=== PATIENT | female | born 1970 | race Hispanic/Latino ===

== ENCOUNTER → 2024-07-03 08:57 | Outpatient (REF) | payer BC, SELFPAY ==
[2024-07-03 10:05] LABS: % Basophils 1.1 % (0-2); % Eosinophils 3.4 % (0-6); % Immature Granulocytes 0.6 % (0-0.5); % Lymphocytes 34.4 % (20.5-51.1); % Monocytes 4.1 % (1.7-9.3); % Neutrophils 56.1 % (42.2-75.2); Absolute Basophils 0.1 10^3/uL (0-0.2); Absolute Eosinophils 0.4 10^3/uL (0-0.7); Absolute Immature Granulocytes 0.1 10^3/uL (0-0.05); Absolute Lymphocytes 3.4 10^3/uL (1.2-3.4); Absolute Monocytes 0.4 10^3/uL (0.1-0.6); Absolute Neutrophils 5.4 10^3/uL (1.4-6.5); Hematocrit 29.5 % (37.0-47.0); Hemoglobin 8.7 g/dL (12.0-16.0); Mean Corp Hgb Conc. 29.3 g/dL (33.0-37.0); Mean Corpuscular Hgb 19.1 pg (27.0-31.0); Mean Corpuscular Volume 65.2 fL (81.0-99.0); Mean Platelet Volume 10.3 fL (7.4-10.4); Nucleated Red Blood Cells % 0 %; Platelet Count 439 10^3/uL (130-400); Red Blood Cell Count 4.66 10^6/uL (4.20-5.40); Red Cell Dist. Width 21.3 % (11.5-14.5); White Blood Cell Count 9.7 10^3/uL (4.8-10.8)
[2024-07-03 10:12] LABS: AST (SGOT) 25 U/L (14-36); Albumin 4.2 g/dl (3.5-5.0); Alkaline Phosphatase 85 U/L (38-126); Blood Urea Nitrogen 11 mg/dl (7-17); Calcium 9.6 mg/dl (8.4-10.2); Carbon Dioxide 27 mmol/L (22-30); Chloride 100 mmol/L (98-107); Glucose 124 mg/dl (70-99); HDL Cholesterol 37 mg/dl; LDL Cholesterol, Calculated 110 mg/dl; Potassium 4.1 mmol/L (3.5-5.1); Sodium 137 mmol/L (135-145); Total Bilirubin 0.4 mg/dl (0.2-1.3); Total Cholesterol 193 mg/dl (50-199); Total Protein 6.8 g/dl (6.3-8.2); Triglyceride 231 mg/dl (10-149); Very Low Density Lipoprotein 46 mg/dl (0-30); eGFR > 60.00
[2024-07-03 10:39] LABS: ALT (SGPT) 16 U/L (0-35)
[2024-07-03 12:26] LABS: Glycohemoglobin (HgbA1c) 7.6 % (4.0-5.6)
== END ==
LOC: REG 08:57
PROVIDERS: ATTENDING PHYSICIAN Family Medicine
DX: E11.9 Type 2 diabetes mellitus without complications (principal)
CPT/HCPCS: 36415; 80053; 80061; 83036; 85025

== ENCOUNTER → 2024-07-30 16:16 | Outpatient (REF) | payer BC, SELFPAY | LOC: CLAB 16:16 | PROVIDERS: ATTENDING PHYSICIAN Physician Assistant Medical | DX: R30.0 Dysuria (principal) | CPT/HCPCS: 87086; 87088 ==

== ENCOUNTER → 2024-09-03 12:21 | Outpatient (REF) | payer BC, SELFPAY | LOC: CLAB 12:21 | PROVIDERS: ATTENDING PHYSICIAN Physician Assistant Medical | DX: R30.0 Dysuria (principal) | CPT/HCPCS: 87071; 87086; 87186 ==

== ENCOUNTER → 2024-09-23 07:15 | Outpatient (REF) | payer BC, SELFPAY | LOC: DHCBC/DCA 07:15 | PROVIDERS: ATTENDING PHYSICIAN Internal Medicine Interventional Cardiology; FAMILY PHYSICIAN Family Medicine | DX: E66.01 Morbid (severe) obesity due to excess calories (principal); I10 Essential (primary) hypertension; E11.9 Type 2 diabetes mellitus without complications; E78.2 Mixed hyperlipidemia; R09.89 Other specified symptoms and signs involving the circulatory and respiratory systems; R00.2 Palpitations | CPT/HCPCS: 78452; 93017; A9500; J2785 ==

== ENCOUNTER → 2025-01-22 07:19 | Outpatient (REF) | payer BC, SELFPAY ==
[2025-01-22 09:04] LABS: Blood Urea Nitrogen 10 mg/dl (7-17); Calcium 9.2 mg/dl (8.4-10.2); Carbon Dioxide 28 mmol/L (22-30); Chloride 102 mmol/L (98-107); Glucose 168 mg/dl (70-99); Magnesium 1.4 mg/dl (1.6-2.3); Potassium 4.4 mmol/L (3.5-5.1); Sodium 138 mmol/L (135-145); eGFR > 60.00
== END ==
LOC: REG 07:19
PROVIDERS: ATTENDING PHYSICIAN Internal Medicine Interventional Cardiology; FAMILY PHYSICIAN Family Medicine
DX: R06.09 Other forms of dyspnea (principal); I10 Essential (primary) hypertension; E78.2 Mixed hyperlipidemia
CPT/HCPCS: 36415; 80048; 83735

== ENCOUNTER → 2025-02-02 15:43 | Outpatient (REF) | payer BC, SELFPAY ==
[2025-02-08 22:09] LABS: HPV, High Risk Detected; HPV, High Risk Source Cervical
== END ==
LOC: CPAP 15:43
PROVIDERS: ATTENDING PHYSICIAN Obstetrics & Gynecology
DX: Z01.419 Encounter for gynecological examination (general) (routine) without abnormal findings (principal); Z11.51 Encounter for screening for human papillomavirus (HPV)
CPT/HCPCS: 87624

== ENCOUNTER → 2025-03-02 09:48 | Outpatient (REF) | payer BC, SELFPAY | LOC: RAD 09:48 | PROVIDERS: ATTENDING PHYSICIAN Internal Medicine Interventional Cardiology; FAMILY PHYSICIAN Family Medicine | DX: R06.09 Other forms of dyspnea (principal); R94.39 Abnormal result of other cardiovascular function study | CPT/HCPCS: 75574; Q9967 ==

== ENCOUNTER → 2025-03-09 08:37 | Outpatient (REF) | payer BC, SELFPAY ==
[2025-03-09 23:47] LABS: IgA 343 mg/dl (70-400)
== END ==
LOC: REG 08:37
PROVIDERS: ATTENDING PHYSICIAN Internal Medicine Gastroenterology; FAMILY PHYSICIAN Family Medicine
DX: D50.9 Iron deficiency anemia, unspecified (principal)
CPT/HCPCS: 36415; 82784; 83516

== ENCOUNTER 2025-03-11 06:38 | Day surgery (SDC) | payer BC, SELFPAY ==
[2025-03-07 08:17] VITALS: BMI 51.0
[2025-03-07 09:32] LABS: % Basophils 0.8 % (0-2); % Eosinophils 3.9 % (0-6); % Immature Granulocytes 0.4 % (0-0.5); % Lymphocytes 28.9 % (20.5-51.1); Absolute Basophils 0.1 10^3/uL (0-0.2); Absolute Eosinophils 0.3 10^3/uL (0-0.7); Absolute Lymphocytes 2.4 10^3/uL (1.2-3.4); Absolute Monocytes 0.4 10^3/uL (0.1-0.6); Absolute Neutrophils 5.1 10^3/uL (1.4-6.5); Hematocrit 30.1 % (37.0-47.0); Hemoglobin 8.8 g/dL (12.0-16.0); Mean Corp Hgb Conc. 29.2 g/dL (33.0-37.0); Mean Corpuscular Hgb 19.3 pg (27.0-31.0); Mean Corpuscular Volume 66.2 fL (81.0-99.0); Mean Platelet Volume 10.7 fL (7.4-10.4); Nucleated Red Blood Cells % 0 %; Platelet Count 347 10^3/uL (130-400); Red Blood Cell Count 4.55 10^6/uL (4.20-5.40); Red Cell Dist. Width 19.9 % (11.5-14.5); White Blood Cell Count 8.4 10^3/uL (4.8-10.8)
[2025-03-07 09:55] LABS: ALT (SGPT) 19 U/L (0-35); AST (SGOT) 21 U/L (14-36); Albumin 3.9 g/dl (3.5-5.0); Alkaline Phosphatase 94 U/L (38-126); Blood Urea Nitrogen 10 mg/dl (7-17); Calcium 9.7 mg/dl (8.4-10.2); Carbon Dioxide 28 mmol/L (22-30); Chloride 100 mmol/L (98-107); Estimated Creatinine Clearance > 125 ml/min; Glucose 240 mg/dl (70-99); Potassium 4.4 mmol/L (3.5-5.1); Sodium 137 mmol/L (135-145); Total Bilirubin 0.4 mg/dl (0.2-1.3); Total Protein 6.6 g/dl (6.3-8.2); eGFR > 60.00
[2025-03-07 11:21] LABS: Reticulocyte Count 2.1 % (0.4-2.8)
[2025-03-07 11:27] LABS: Iron 24 ug/dl (37-170)
[2025-03-07 11:36] LABS: Percent Saturation 5 % (20-50); Total Iron Binding Capacity 406 ug/dl (265-497)
[2025-03-07 12:47] LABS: Ferritin 6.7 ng/ml (11.1-264.0)
[2025-03-07 13:19] LABS: Folate 18.2 ng/ml (2.76-20); Vitamin B12 319 pg/ml (239-931)
[2025-03-11] VITALS (25 sets, daily range): BP systolic 130–181; BP diastolic 57–98
[2025-03-11] MEDS: LOW STRENGTH ASPIRIN 324 MG PO (07:22)
[2025-03-11 07:29] LABS: Glucose - Point of Care 239 mg/dl (70-99)
[2025-03-11] MEDS: NSS 1000 IV (08:45)
[2025-03-11] MEDS: FERRLECIT 110 MG IV (10:19)
--- NOTE | 2025-03-11 14:27 | W.PN.UPDATE ---
Update Note
Progress Note Update
54 yo WF s/p PCI LAD x1 (same day). She denies cp, sob, konrad diet, voiding, amb w/o dizziness, EKG SR, R rad site c/d/i. She will be on DAPT ASA/Plavix, we will switch her prilosec to protonix while on DAPT. She has had ALAYNA and is being evaluated by
GI as outpt as well as getting IV iron infusions which we started with one today and will f/u with 5 over the next 2 weeks. We will check CBC in 2 weeks and recommended she f/u with Hem/Onc. Her LVEDP was elevated and we treated with lasix 40mg iv
and will increase lasix po to 40 bid at home. Will check a BMP/Mg in 2 weeks. Cardiac rehab c/s. Activity restrictions reviewed. She will f/u Dr. Monteiro in 1 mo. She is for d/c home after 3pm.
--- NOTE | 2025-03-11 20:44 | ITS.CL.CATH ---
Addendum entered and electronically signed by Bonny Silverman MD 03/17/25 16:12:
Date of Procedure: March 11, 2025
Bonny Silverman MD, [facility], [facility]
Original Note:
District Superintendent - Catheterization
Cardiac Catheterization
Procedure Report:
LEFT HEART CATHETERIZATION
Date of Procedure: March 11, 2020
Referring: Bonny Silverman MD, [facility], [facility]
PROCEDURES:
Left heart catheterization, coronary angiogram.
2. Moderate sedation.
3. Functional physiologic testing with IFR of proximal to mid LAD.
4. Successful percutaneous coronary artery intervention of diffuse 50 to 60% IFR positive proximal LAD with one 3.0 x 26 mm Medtronic Chauncey drug-eluting stent, postdilated using IVUS guidance with a 3.25 x 8 mm NC balloon at 18 rashad distally and 4.0
x 8 mm NC balloon at 22 rashad proximally with an excellent angiographic result
5. Intravascular ultrasound
INDICATION: Abnormal coronary CT angiogram in the setting of ongoing dyspnea on exertion with calcium score of 24,000 with suggestion of moderate to severe possibly obstructive CAD.
ACCESS: Right radial artery, 6 Dutch sheath, under ultrasound guidance
Ultrasound was utilized for vascular access. The radial artery was visualized under ultrasound, and the vessel was patent and pulsatile. An image was stored permanently in the patient's medical record. Under direct ultrasound guidance, a 6 Dutch
sheath was inserted into the artery using a micropuncture kit through a modified Seldinger technique.
HEMODYNAMICS : (mmHg)
AO (s/d) : 141/70
LV (s/d) : 145/60
LVEDP : 26
CORONARY FINDINGS
DOMINANCE: Right
Left Main Trunk (LMT):� Large caliber vessel that gives rise to the LAD and LCx branches and is free of angiographic disease.
Left Anterior Descending Artery (LAD):� Large caliber vessel that gives off two small major diagonal branches as it courses along the anterior inter-ventricular groove before wrapping around the cardiac apex. The proximal to LAD has diffuse disease
with up to 60-70% stenosis, which was iFR positive at 0.76 and therefore intervened upon as noted below. Thereafter distally there is 30% stenosis in the mid and distal LAD
Left Circumflex Artery (LCx):� Large caliber vessel that gives off a moderate caliber major obtuse marginal (OM) branches as it courses along the atrio-ventricular (AV) groove.� The OM1 is diffusely severely diseased with up to 70% stenosis - this
vessel is a poor target for PCI given the diffuse nature of the disease involving the entire vessel with no good landing zone and a small caliber in the mid-segment.� �
Right Coronary Artery (RCA):� Large caliber dominant vessel that gives rise to the posterior descending artery (RPDA) and postero-lateral ventricular (RPLV) branches distally.� The distal RCA has 20-30% stenosis. The RPDA and RPL has diffuse
disease. �
HEMODYNAMIC ASSESSMENT OF THE PROXIMAL LAD WITH A [employer] OMNI WIRE: The origin of the left coronary artery was cannulated with a 6 Fr EBU 3.5 guide catheter. Intravenous heparin was administered and the ACT was followed during the procedure. Two
hundred micrograms of intracoronary nitroglycerin was given through the guide catheter. A Darrow Omni wire was advanced to the guide catheter tip and normalized just outside the guide catheter. The Omni wire was then carefully manipulated across
the stenosis in the proximal LAD with the iFR below the ischemic threshold serially measuring 0.78, 0.76, 0.79. The Omni wire was then pulled back to the guide catheter where the Pd/Pa measured 1.0 confirming no baseline drift in pressure readings
CORONARY INTERVENTION: Decision was made to proceed over the Omni wire with percutaneous intervention. Additional heparin was given to maintain a therapeutic ACT throughout the case. The lesion was predilated using a 2.75 x 15 mm semicompliant
balloon at 12 rashad with good expansion. The lesion was subsequently stented using a 3.0 x 26 mm Medtronic [place] drug-eluting stent at 12 rashad. We then used [employer] IVUS Craig eye catheter and based on IVUS imaging, the stent was postdilated using a
3.0 x 20 mm NC balloon at 20 rashad initially. Given slight underexpansion at the distal edge, we further postdilated using a 3.25 x 8 mm NC balloon at the distal edge of the stent at 18 rashad. The proximal end of the stent was postdilated based on
IVUS imaging with a 4.0 x 8 mm NC balloon at 22 rashad with an excellent angiographic and IVUS based result. Patient was loaded with 600 mg of Plavix at the end of the case. She tolerated the procedure well with no acute complications.
SEDATION: 67 minutes of procedural sedation was utilized. An independent medical van driver was present to assist with and help manage the patient's level of consciousness and physiologic status.
RADIATION SUMMARY: Fluoro Time (min): 9.3, Dose (mGy): 828.3, DAP (Gy.cm2) : 42.87
Closure Device: Vascular band over right radial artery, 10 cc of air.
CONCLUSIONS
1. Successful percutaneous coronary artery intervention of diffuse 50 to 60% IFR positive proximal LAD with one 3.0 x 26 mm Medtronic Chauncey drug-eluting stent, postdilated using IVUS guidance with a 3.25 x 8 mm NC balloon at 18 rashad distally and 4.0 x
8 mm NC balloon at 22 rashad proximally with an excellent angiographic result.
2. The OM1 is diffusely severely diseased with up to 70% stenosis - this vessel is a poor target for PCI given the diffuse nature of the disease involving the entire vessel with no good landing zone and a small caliber in the mid-segment
30. Significantly elevated LVEDP at 26 mmHg.
RECOMMENDATIONS
1. Dual antiplatelet therapy with daily baby aspirin and 75 mg of Plavix along with high intensity statin and beta-cecilia as tolerated, aiming for LDL goal of less than 55.
2. Aggressive management of cardiovascular risk factors.
3. Given baseline anemia, close monitoring of blood counts next week. Discussed with gastroenterology, plan for diagnostic EGD/colonoscopy as well as hematology referral as an outpatient.
4. Diuretics to improve filling pressures and shortness of breath.
5. Referral for outpatient cardiac rehab.
Bonny Silverman MD, FAC, [facility]
[2025-03-14 08:50] LABS: ACT-LR - POC 295 Seconds (116-155)
[2025-03-14 08:50] LABS: ACT-LR - POC 255 Seconds (116-155)
[2025-03-14 08:50] LABS: ACT-LR - POC 277 Seconds (116-155)
[2025-03-14 08:50] LABS: ACT-LR - POC 335 Seconds (116-155)
[2025-03-14 08:50] LABS: ACT-LR - POC 285 Seconds (116-155)
== END 2025-03-11 15:45 | disposition home or self-care (01) ==
LOC: CATH 06:38
PROVIDERS: ATTENDING PHYSICIAN Internal Medicine Interventional Cardiology; FAMILY PHYSICIAN Family Medicine
DX: I25.10 Atherosclerotic heart disease of native coronary artery without angina pectoris (principal); I10 Essential (primary) hypertension; E78.5 Hyperlipidemia, unspecified; I49.3 Ventricular premature depolarization; Z79.4 Long term (current) use of insulin; E11.9 Type 2 diabetes mellitus without complications; K21.9 Gastro-esophageal reflux disease without esophagitis; E03.9 Hypothyroidism, unspecified; K46.9 Unspecified abdominal hernia without obstruction or gangrene; Z87.440 Personal history of urinary (tract) infections; D50.9 Iron deficiency anemia, unspecified; E66.01 Morbid (severe) obesity due to excess calories; Z68.43 Body mass index [BMI] 50.0-59.9, adult; Z87.891 Personal history of nicotine dependence; Z79.899 Other long term (current) drug therapy; Z79.890 Hormone replacement therapy; Z79.82 Long term (current) use of aspirin; Z79.02 Long term (current) use of antithrombotics/antiplatelets; Z95.5 Presence of coronary angioplasty implant and graft; F41.9 Anxiety disorder, unspecified; Z90.49 Acquired absence of other specified parts of digestive tract; Z90.89 Acquired absence of other organs
CPT/HCPCS: 92978; 93799; 99152; 99153; 36415; 80053; 82607; 82728; 82746; 82962; 83540; 83550; 85025; 85045; 85347; 93005; 93458; C1725; C1753; C1769; C1874; C1894; C9600; J2916; Q9967

== ENCOUNTER 2025-03-16 14:33 | Outpatient (RCR) | payer BC, SELFPAY ==
[2025-03-14] MEDS: NSS 250 IV (14:58)
[2025-03-14] MEDS: VENOFER 110 MG IV (14:58)
[2025-03-14 15:00] VITALS: BP 159/88
[2025-03-14 16:35] VITALS: BP 154/60
[2025-03-16 14:43] VITALS: BP 133/61
[2025-03-16] MEDS: VENOFER 110 MG IV (14:50)
[2025-03-16] MEDS: NSS 250 IV (14:50)
[2025-03-16 16:03] VITALS: BP 132/60
== END 2025-03-16 23:59 | disposition home or self-care (01) ==
LOC: OID 14:33
PROVIDERS: ATTENDING PHYSICIAN Physician Assistant; FAMILY PHYSICIAN Family Medicine
DX: D50.9 Iron deficiency anemia, unspecified (principal); I49.3 Ventricular premature depolarization; R06.09 Other forms of dyspnea; E66.01 Morbid (severe) obesity due to excess calories
CPT/HCPCS: 96361; 96365; J1756

== ENCOUNTER → 2025-03-19 07:34 | Outpatient (REF) | payer BC, SELFPAY ==
[2025-03-19 08:49] LABS: % Basophils 1.1 % (0-2); % Eosinophils 5.7 % (0-6); % Immature Granulocytes 0.4 % (0-0.5); % Lymphocytes 27.4 % (20.5-51.1); % Monocytes 4.8 % (1.7-9.3); % Neutrophils 60.6 % (42.2-75.2); Absolute Lymphocytes 2.5 10^3/uL (1.2-3.4); Absolute Neutrophils 5.5 10^3/uL (1.4-6.5); Hematocrit 31.4 % (37.0-47.0); Hemoglobin 9.3 g/dL (12.0-16.0); Mean Corp Hgb Conc. 29.6 g/dL (33.0-37.0); Mean Corpuscular Volume 70.9 fL (81.0-99.0); Mean Platelet Volume 10.9 fL (7.4-10.4); Platelet Count 331 10^3/uL (130-400); Red Blood Cell Count 4.43 10^6/uL (4.20-5.40); Red Cell Dist. Width 25.1 % (11.5-14.5)
[2025-03-19 08:50] LABS: Absolute Basophils 0.1 10^3/uL (0-0.2); Absolute Eosinophils 0.5 10^3/uL (0-0.7); Absolute Monocytes 0.4 10^3/uL (0.1-0.6); Nucleated Red Blood Cells % 0 %
[2025-03-19 09:05] LABS: Blood Urea Nitrogen 10 mg/dl (7-17); Calcium 9.6 mg/dl (8.4-10.2); Carbon Dioxide 29 mmol/L (22-30); Chloride 101 mmol/L (98-107); Glucose 130 mg/dl (70-99); Magnesium 1.7 mg/dl (1.6-2.3); Potassium 4.4 mmol/L (3.5-5.1); Sodium 142 mmol/L (135-145); eGFR > 60.00
[2025-03-19 10:26] LABS: Normal RBC Morphology No
[2025-03-19 10:27] LABS: Anisocytosis 1+
[2025-03-19 10:28] LABS: Hypochromasia Slight; Macrocytosis 1+
[2025-03-19 10:29] LABS: Ovalocytes Slight; Stomatocytes Slight
[2025-03-19 10:30] LABS: Polychromasia Slight
== END ==
LOC: REG 07:34
PROVIDERS: ATTENDING PHYSICIAN Nurse Practitioner Adult Health; FAMILY PHYSICIAN Family Medicine; REFERRING PHYSICIAN Internal Medicine Gastroenterology
DX: I25.10 Atherosclerotic heart disease of native coronary artery without angina pectoris (principal)
CPT/HCPCS: 36415; 80048; 83735; 85025

== ENCOUNTER 2025-03-29 14:29 | Outpatient (RCR) | payer BC, SELFPAY ==
[2025-03-18 14:30] VITALS: BP 154/55
[2025-03-18] MEDS: VENOFER 110 MG IV (14:50)
[2025-03-18 16:39] VITALS: BP 136/58
[2025-03-22] MEDS: NSS 250 IV (14:55)
[2025-03-22] MEDS: VENOFER 110 MG IV (14:56)
[2025-03-22 14:57] VITALS: BP 159/79
[2025-03-29 14:40] VITALS: BP 167/76
[2025-03-29] MEDS: NSS 250 IV (14:53)
[2025-03-29] MEDS: VENOFER 110 MG IV (14:54)
[2025-03-29 16:07] VITALS: BP 153/74
== END 2025-03-30 09:03 | disposition home or self-care (01) ==
LOC: OID 14:29
PROVIDERS: ATTENDING PHYSICIAN Physician Assistant; FAMILY PHYSICIAN Family Medicine
DX: D50.9 Iron deficiency anemia, unspecified (principal); I49.3 Ventricular premature depolarization; R06.09 Other forms of dyspnea; E66.01 Morbid (severe) obesity due to excess calories
CPT/HCPCS: 96361; 96365; J1756

== ENCOUNTER 2025-04-15 16:14 | Outpatient (RCR) | payer BC, SELFPAY ==
[2025-03-17 13:25] LABS: Glucose - Point of Care 135 mg/dl (70-99)
[2025-03-17 14:14] LABS: Glucose - Point of Care 86 mg/dl (70-99)
[2025-03-17 14:47] LABS: Glucose - Point of Care 151 mg/dl (70-99)
[2025-03-21 15:54] LABS: Glucose - Point of Care 246 mg/dl (70-99)
[2025-03-21 16:51] LABS: Glucose - Point of Care 182 mg/dl (70-99)
[2025-04-04 15:55] LABS: Glucose - Point of Care 267 mg/dl (70-99)
[2025-04-04 16:53] LABS: Glucose - Point of Care 203 mg/dl (70-99)
[2025-04-13 15:59] LABS: Glucose - Point of Care 235 mg/dl (70-99)
[2025-04-13 17:06] LABS: Glucose - Point of Care 130 mg/dl (70-99)
[2025-04-15 15:58] LABS: Glucose - Point of Care 159 mg/dl (70-99)
[2025-04-15 16:52] LABS: Glucose - Point of Care 83 mg/dl (70-99)
[2025-04-15 17:26] LABS: Glucose - Point of Care 121 mg/dl (70-99)
== END 2025-04-15 23:59 | disposition home or self-care (01) ==
LOC: CRHB 16:14
PROVIDERS: ATTENDING PHYSICIAN Internal Medicine Interventional Cardiology; FAMILY PHYSICIAN Family Medicine
DX: I25.10 Atherosclerotic heart disease of native coronary artery without angina pectoris (principal); Z95.5 Presence of coronary angioplasty implant and graft
CPT/HCPCS: 82962; 93797; 93798; G0422

== ENCOUNTER 2025-04-26 06:18 | Day surgery (SDC) | payer BC, SELFPAY ==
[2025-04-26 08:41] VITALS: BMI 51.6
[2025-04-26 08:43] VITALS: BMI 51.6
[2025-04-26 08:54] VITALS: BP 151/69
[2025-04-26 09:08] LABS: Glucose - Point of Care 211 mg/dl (70-99)
[2025-04-26 10:30] VITALS: BP 135/67
[2025-04-26 10:45] VITALS: BP 144/60
[2025-04-26 10:51] VITALS: BP 129/68
== END 2025-04-26 11:00 | disposition home or self-care (01) ==
LOC: GI 06:18
PROVIDERS: ATTENDING PHYSICIAN Internal Medicine Gastroenterology
DX: D50.9 Iron deficiency anemia, unspecified (principal); K44.9 Diaphragmatic hernia without obstruction or gangrene; K64.8 Other hemorrhoids; K31.7 Polyp of stomach and duodenum; K31.89 Other diseases of stomach and duodenum
CPT/HCPCS: 43239; 45378; 88305; 82962; 88342

== ENCOUNTER → 2025-05-03 06:15 | Outpatient (REF) | payer BC, SELFPAY ==
[2025-05-03 09:45] LABS: ALT (SGPT) 19 U/L (0-35); AST (SGOT) 22 U/L (14-36); Alkaline Phosphatase 80 U/L (38-126); Blood Urea Nitrogen 14 mg/dl (7-17); Calcium 9.3 mg/dl (8.4-10.2); Carbon Dioxide 27 mmol/L (22-30); Chloride 103 mmol/L (98-107); Glucose 239 mg/dl (70-99); HDL Cholesterol 28 mg/dl; LDL Cholesterol, Calculated 74 mg/dl; Sodium 140 mmol/L (135-145); Total Bilirubin 0.4 mg/dl (0.2-1.3); Total Cholesterol 145 mg/dl (50-199); Total Protein 6.6 g/dl (6.3-8.2); Triglyceride 218 mg/dl (10-149); Very Low Density Lipoprotein 43 mg/dl (0-30); eGFR > 60.00
[2025-05-03 10:27] LABS: Glycohemoglobin (HgbA1c) 7.6 % (4.0-5.6)
[2025-05-03 10:28] LABS: % Basophils 0.8 % (0-2); % Eosinophils 4.8 % (0-6); % Immature Granulocytes 0.3 % (0-0.5); % Monocytes 4.1 % (1.7-9.3); Absolute Basophils 0.1 10^3/uL (0-0.2); Absolute Eosinophils 0.3 10^3/uL (0-0.7); Absolute Lymphocytes 2.1 10^3/uL (1.2-3.4); Absolute Monocytes 0.3 10^3/uL (0.1-0.6); Absolute Neutrophils 4.3 10^3/uL (1.4-6.5); Hematocrit 33.1 % (37.0-47.0); Hemoglobin 10.6 g/dL (12.0-16.0); Mean Corpuscular Hgb 25.2 pg (27.0-31.0); Mean Corpuscular Volume 78.6 fL (81.0-99.0); Mean Platelet Volume 10.9 fL (7.4-10.4); Nucleated Red Blood Cells % 0 %; Platelet Count 316 10^3/uL (130-400); Red Blood Cell Count 4.21 10^6/uL (4.20-5.40); Red Cell Dist. Width 25.6 % (11.5-14.5); White Blood Cell Count 7.1 10^3/uL (4.8-10.8)
[2025-05-03 11:51] LABS: Anisocytosis 2+; Normal RBC Morphology No; Ovalocytes 1+
[2025-05-03 11:52] LABS: Microcytosis 1+
[2025-05-03 11:53] LABS: Hypochromasia 1+
== END ==
LOC: HWLAB 06:15
PROVIDERS: FAMILY PHYSICIAN Family Medicine; REFERRING PHYSICIAN Internal Medicine Interventional Cardiology
DX: E11.9 Type 2 diabetes mellitus without complications (principal)
CPT/HCPCS: 36415; 80053; 80061; 83036; 85025

== ENCOUNTER 2025-05-16 16:48 | Outpatient (RCR) | payer BC, SELFPAY ==
[2025-04-18 16:02] LABS: Glucose - Point of Care 209 mg/dl (70-99)
[2025-04-18 17:00] LABS: Glucose - Point of Care 152 mg/dl (70-99)
[2025-04-22 15:53] LABS: Glucose - Point of Care 191 mg/dl (70-99)
[2025-04-22 16:49] LABS: Glucose - Point of Care 138 mg/dl (70-99)
[2025-04-29 15:52] LABS: Glucose - Point of Care 254 mg/dl (70-99)
[2025-04-29 16:53] LABS: Glucose - Point of Care 139 mg/dl (70-99)
[2025-05-04 15:55] LABS: Glucose - Point of Care 147 mg/dl (70-99)
[2025-05-04 17:17] LABS: Glucose - Point of Care 148 mg/dl (70-99)
[2025-05-13 15:51] LABS: Glucose - Point of Care 251 mg/dl (70-99)
[2025-05-13 16:46] LABS: Glucose - Point of Care 203 mg/dl (70-99)
[2025-05-16 15:51] LABS: Glucose - Point of Care 209 mg/dl (70-99)
[2025-05-16 16:49] LABS: Glucose - Point of Care 109 mg/dl (70-99)
== END 2025-05-16 23:59 | disposition home or self-care (01) ==
LOC: CRHB 16:48
PROVIDERS: ATTENDING PHYSICIAN Internal Medicine Interventional Cardiology; FAMILY PHYSICIAN Family Medicine
DX: I25.10 Atherosclerotic heart disease of native coronary artery without angina pectoris (principal); Z95.5 Presence of coronary angioplasty implant and graft
CPT/HCPCS: 82962; 93797; 93798

== ENCOUNTER → 2025-05-23 15:45 | Outpatient (REF) | payer BC, SELFPAY ==
[2025-05-23 16:47] LABS: Hematocrit 32.1 % (37.0-47.0); Hemoglobin 10.4 g/dL (12.0-16.0); Mean Corp Hgb Conc. 32.4 g/dL (33.0-37.0); Mean Corpuscular Volume 80.7 fL (81.0-99.0); Nucleated Red Blood Cells % 0 %; Platelet Count 309 10^3/uL (130-400); Red Cell Dist. Width 20.3 % (11.5-14.5)
[2025-05-23 17:15] LABS: Iron 28 ug/dl (37-170)
[2025-05-23 17:25] LABS: Total Iron Binding Capacity 333 ug/dl (265-497)
[2025-05-23 17:34] LABS: Vitamin D, 25-OH*** 17.5 ng/mL (30-80)
[2025-05-23 18:24] LABS: Folate 13.1 ng/ml (2.76-20); Vitamin B12 318 pg/ml (239-931)
[2025-05-24 10:45] LABS: Ferritin 16.3 ng/ml (11.1-264.0)
== END ==
LOC: REG 15:45
PROVIDERS: ATTENDING PHYSICIAN Nurse Practitioner Adult Health; FAMILY PHYSICIAN Family Medicine
DX: D50.9 Iron deficiency anemia, unspecified (principal); R53.82 Chronic fatigue, unspecified
CPT/HCPCS: 36415; 82306; 82607; 82728; 82746; 83540; 83550; 85025

== ENCOUNTER 2025-06-13 15:50 | Outpatient (RCR) | payer BC, SELFPAY ==
[2025-05-18 15:55] LABS: Glucose - Point of Care 189 mg/dl (70-99)
[2025-05-18 16:50] LABS: Glucose - Point of Care 99 mg/dl (70-99)
[2025-05-27 15:57] LABS: Glucose - Point of Care 215 mg/dl (70-99)
[2025-05-27 16:48] LABS: Glucose - Point of Care 124 mg/dl (70-99)
[2025-05-30 15:50] LABS: Glucose - Point of Care 225 mg/dl (70-99)
[2025-05-30 16:55] LABS: Glucose - Point of Care 166 mg/dl (70-99)
[2025-06-06 15:51] LABS: Glucose - Point of Care 175 mg/dl (70-99)
[2025-06-06 16:53] LABS: Glucose - Point of Care 108 mg/dl (70-99)
[2025-06-08 16:10] LABS: Glucose - Point of Care 268 mg/dl (70-99)
[2025-06-08 17:49] LABS: Glucose - Point of Care 120 mg/dl (70-99)
[2025-06-13 15:52] LABS: Glucose - Point of Care 219 mg/dl (70-99)
[2025-06-13 16:46] LABS: Glucose - Point of Care 133 mg/dl (70-99)
== END 2025-06-13 23:59 | disposition home or self-care (01) ==
LOC: CRHB 15:50
PROVIDERS: ATTENDING PHYSICIAN Internal Medicine Interventional Cardiology; FAMILY PHYSICIAN Family Medicine
DX: I25.10 Atherosclerotic heart disease of native coronary artery without angina pectoris (principal); Z95.5 Presence of coronary angioplasty implant and graft
CPT/HCPCS: 82962; 93797; 93798; G0422

== ENCOUNTER 2025-06-14 14:29 | Outpatient (RCR) | payer BC, SELFPAY ==
[2025-06-07 15:05] VITALS: BP 162/51
[2025-06-07] MEDS: VENOFER 110 MG IV (15:10)
[2025-06-07 16:20] VITALS: BP 136/53
[2025-06-14 14:43] VITALS: BP 146/59
[2025-06-14] MEDS: VENOFER 110 MG IV (14:54)
[2025-06-14 16:24] VITALS: BP 140/50
== END 2025-06-16 23:59 | disposition home or self-care (01) ==
LOC: OID 14:29
PROVIDERS: ATTENDING PHYSICIAN Nurse Practitioner Adult Health; FAMILY PHYSICIAN Family Medicine
DX: D50.9 Iron deficiency anemia, unspecified (principal); R53.82 Chronic fatigue, unspecified; E55.9 Vitamin D deficiency, unspecified; E53.9 Vitamin B deficiency, unspecified; R06.02 Shortness of breath
CPT/HCPCS: 96365; J1756

== ENCOUNTER 2025-06-24 16:41 | Outpatient (RCR) | payer BC, SELFPAY ==
[2025-06-20 15:55] LABS: Glucose - Point of Care 179 mg/dl (70-99)
[2025-06-20 16:55] LABS: Glucose - Point of Care 96 mg/dl (70-99)
[2025-06-20 17:26] LABS: Glucose - Point of Care 108 mg/dl (70-99)
[2025-06-24 15:48] LABS: Glucose - Point of Care 176 mg/dl (70-99)
[2025-06-24 16:46] LABS: Glucose - Point of Care 102 mg/dl (70-99)
== END 2025-06-24 23:59 | disposition home or self-care (01) ==
LOC: CRHB 16:41
PROVIDERS: ATTENDING PHYSICIAN Internal Medicine Interventional Cardiology; FAMILY PHYSICIAN Family Medicine
DX: I25.10 Atherosclerotic heart disease of native coronary artery without angina pectoris (principal); Z95.5 Presence of coronary angioplasty implant and graft
CPT/HCPCS: 82962; 93797; 93798

== ENCOUNTER 2025-06-30 14:35 | Outpatient (RCR) | payer BC, SELFPAY ==
[2025-06-23 14:00] VITALS: BP 142/62
[2025-06-23] MEDS: VENOFER 110 MG IV (14:15)
[2025-06-23 16:05] VITALS: BP 127/62
[2025-06-28 14:35] VITALS: BP 179/80
[2025-06-28] MEDS: VENOFER 110 MG IV (14:48)
[2025-06-28 15:59] VITALS: BP 163/70
[2025-06-30 14:50] VITALS: BP 151/68
[2025-06-30] MEDS: VENOFER 110 MG IV (15:02)
[2025-06-30 16:35] VITALS: BP 147/63
== END 2025-07-01 08:57 | disposition home or self-care (01) ==
LOC: OID 14:35
PROVIDERS: ATTENDING PHYSICIAN Nurse Practitioner Adult Health; FAMILY PHYSICIAN Family Medicine
DX: D50.9 Iron deficiency anemia, unspecified (principal); R53.82 Chronic fatigue, unspecified; E55.9 Vitamin D deficiency, unspecified; E53.9 Vitamin B deficiency, unspecified; R06.02 Shortness of breath
CPT/HCPCS: 96365; J1756

== ENCOUNTER → 2025-07-06 06:13 | Outpatient (REF) | payer BC, SELFPAY ==
[2025-07-06 10:14] LABS: Hematocrit 35.9 % (37.0-47.0); Hemoglobin 11.6 g/dL (12.0-16.0); Mean Corp Hgb Conc. 32.3 g/dL (33.0-37.0); Mean Corpuscular Volume 84.7 fL (81.0-99.0); Nucleated Red Blood Cells % 0 %; Platelet Count 322 10^3/uL (130-400); Red Cell Dist. Width 16.3 % (11.5-14.5)
[2025-07-06 11:02] LABS: Iron 64 ug/dl (37-170)
[2025-07-06 11:11] LABS: Total Iron Binding Capacity 269 ug/dl (265-497)
[2025-07-06 12:19] LABS: Vitamin D, 25-OH*** 24.5 ng/mL (30-80)
[2025-07-06 12:22] LABS: FSH 4.4 mIU/ml
[2025-07-06 12:32] LABS: TSH 0.61 uIU/ml (0.47-4.68)
[2025-07-06 12:36] LABS: Ferritin 120.0 ng/ml (11.1-264.0)
[2025-07-06 13:07] LABS: Folate 18.4 ng/ml (2.76-20); Vitamin B12 344 pg/ml (239-931)
== END ==
LOC: HWLAB 06:13
PROVIDERS: ATTENDING PHYSICIAN Nurse Practitioner Adult Health; FAMILY PHYSICIAN Family Medicine; REFERRING PHYSICIAN Obstetrics & Gynecology
DX: E03.9 Hypothyroidism, unspecified (principal); Z78.0 Asymptomatic menopausal state; D50.9 Iron deficiency anemia, unspecified; R53.82 Chronic fatigue, unspecified; E55.9 Vitamin D deficiency, unspecified
CPT/HCPCS: 36415; 82306; 82607; 82728; 82746; 83001; 83002; 83540; 83550; 84439; 84443; 85025

== ENCOUNTER 2025-07-20 15:45 | Outpatient (RCR) | payer BC, SELFPAY ==
[2025-07-20 15:53] LABS: Glucose - Point of Care 335 mg/dl (70-99)
[2025-07-20 16:13] LABS: Glucose - Point of Care 324 mg/dl (70-99)
== END 2025-07-20 23:59 | disposition home or self-care (01) ==
LOC: CRHB 15:45
PROVIDERS: ATTENDING PHYSICIAN Internal Medicine Interventional Cardiology; FAMILY PHYSICIAN Family Medicine
DX: I25.10 Atherosclerotic heart disease of native coronary artery without angina pectoris (principal); Z95.5 Presence of coronary angioplasty implant and graft
CPT/HCPCS: 82962; 93798

== ENCOUNTER → 2025-08-31 06:24 | Outpatient (REF) | payer BC, SELFPAY ==
[2025-08-31 10:33] LABS: Hematocrit 37.9 % (37.0-47.0); Hemoglobin 12.7 g/dL (12.0-16.0); Mean Corp Hgb Conc. 33.5 g/dL (33.0-37.0); Mean Corpuscular Volume 85.7 fL (81.0-99.0); Nucleated Red Blood Cells % 0 %; Platelet Count 303 10^3/uL (130-400); Red Cell Dist. Width 15.5 % (11.5-14.5)
[2025-08-31 10:38] LABS: Iron 77 ug/dl (37-170)
[2025-08-31 10:48] LABS: Total Iron Binding Capacity 286 ug/dl (265-497)
[2025-08-31 13:09] LABS: Vitamin D, 25-OH*** 32.5 ng/mL (30-80)
[2025-08-31 13:27] LABS: Ferritin 57.8 ng/ml (11.1-264.0)
[2025-08-31 14:00] LABS: Folate 7.0 ng/ml (2.76-20); Vitamin B12 483 pg/ml (239-931)
== END ==
LOC: HWLAB 06:24
PROVIDERS: ATTENDING PHYSICIAN Nurse Practitioner Adult Health; FAMILY PHYSICIAN Family Medicine
DX: D50.9 Iron deficiency anemia, unspecified (principal); R53.82 Chronic fatigue, unspecified; E55.9 Vitamin D deficiency, unspecified; E53.9 Vitamin B deficiency, unspecified
CPT/HCPCS: 36415; 82306; 82607; 82728; 82746; 83540; 83550; 85025